=== PATIENT | female | born 1970 | race Native Hawaiian/Other Pacific Islander ===

== ENCOUNTER 2016-06-28 12:05 | Outpatient (CLI) | payer OTHER ==
[2016-06-28 12:50] LABS: PLATELET COUNT 247 K/uL (152-353)
[2016-06-28 13:07] LABS: POTASSIUM 4.7 mmol/L (3.6-5.2); SODIUM 140 mmol/L (136-145)
== END 2016-06-28 19:08 | disposition home or self-care (01) ==
LOC: LAB 12:05
PROVIDERS: Family Medicine
DX: E11.9 Type 2 diabetes mellitus without complications (principal); I10 Essential (primary) hypertension; E78.4 Other hyperlipidemia; E55.9 Vitamin D deficiency, unspecified; G47.33 Obstructive sleep apnea (adult) (pediatric); F32.89 Other specified depressive episodes; K21.9 Gastro-esophageal reflux disease without esophagitis
CPT/HCPCS: 80053; 80061; 81000; 82043; 82306; 82570; 83036; 83735; 84439; 84443; 84550; 85027

== ENCOUNTER 2016-07-20 09:21 | Outpatient (CLI) | payer OTHER | END 2016-07-20 11:00 | disposition home or self-care (01) | LOC: LABW 09:21 | DX: D64.9 Anemia, unspecified (principal) | CPT/HCPCS: 36415; 82607; 82728; 82746; 83540; 83550 ==

== ENCOUNTER 2016-07-30 20:30 | Outpatient (CLI) | payer OTHER ==
[2016-07-30] MEDS ORDERED: LYRICA300 MG OR (20:57)
[2016-07-30] MEDS ORDERED: BUSPIRONE10 MG PO (20:58)
[2016-07-30] MEDS ORDERED: RANITIDINE 150150 MG PO (20:59)
[2016-07-30] MEDS ORDERED: METF100038 OR (21:17)
[2016-07-30] MEDS ORDERED: CARB200T42 PO (21:18)
[2016-07-30] MEDS ORDERED: TRICOR145 M1 PO (21:19)
[2016-07-30] MEDS ORDERED: DIAZEPAM10 M2 PO (21:19)
[2016-07-30] MEDS ORDERED: AMITRIPTYLIN100 MG PO (21:20)
[2016-07-30] MEDS ORDERED: SITA50TA2 PO (21:23)
[2016-07-30] MEDS ORDERED: LISI10TA11 PO (21:24)
[2016-07-30] MEDS ORDERED: TOPIRAMATE25 M1 OR (21:24)
[2016-07-30] MEDS ORDERED: CITALOPRAM40 MG PO (21:25)
[2016-07-30] MEDS ORDERED: CHLORTHALID25 MG OR (21:26)
[2016-07-30] MEDS ORDERED: DULOXETINE HCL30 MG PO (21:27)
[2016-07-30] MEDS ORDERED: AMERGE2.5 MG PO (21:29)
[2016-07-30] MEDS ORDERED: ZOFRAN ODT4 MG OR (21:31)
[2016-07-30] MEDS ORDERED: FLUTICASONE0.005 % EX (21:32)
== END 2016-07-30 20:38 | disposition short-term general hospital (02) ==
LOC: AMB 20:30
DX: R40.20 Unspecified coma (principal)
CPT/HCPCS: A0425; A0427

== ENCOUNTER 2016-07-30 20:40 | Inpatient (IN) | payer OTHER ==
[~2016-07-30] VITALS: Ht 172.7 cm; Wt 95.8 kg
[2016-07-30 20:40] VITALS: BP 128/90; TEMP 98.7
[2016-07-30] MEDS ORDERED: LYRICA300 MG OR (20:57)
[2016-07-30] MEDS ORDERED: BUSPIRONE10 MG PO (20:58)
[2016-07-30] MEDS ORDERED: RANITIDINE 150150 MG PO (20:59)
[2016-07-30 21:12] LABS: PLATELET COUNT 220 K/uL (152-353)
[2016-07-30] MEDS ORDERED: METF100038 OR (21:17)
[2016-07-30] MEDS ORDERED: CARB200T42 PO (21:18)
[2016-07-30] MEDS ORDERED: DIAZEPAM10 M2 PO (21:19)
[2016-07-30] MEDS ORDERED: TRICOR145 M1 PO (21:19)
[2016-07-30 21:20] LABS: POTASSIUM 3.9 mmol/L (3.6-5.2)
[2016-07-30] MEDS ORDERED: AMITRIPTYLIN100 MG PO (21:20)
[2016-07-30] MEDS ORDERED: SITA50TA2 PO (21:23)
[2016-07-30] MEDS ORDERED: TOPIRAMATE25 M1 OR (21:24)
[2016-07-30] MEDS ORDERED: LISI10TA11 PO (21:24)
[2016-07-30] MEDS ORDERED: CITALOPRAM40 MG PO (21:25)
[2016-07-30] MEDS ORDERED: CHLORTHALID25 MG OR (21:26)
[2016-07-30] MEDS ORDERED: DULOXETINE HCL30 MG PO (21:27)
[2016-07-30] MEDS ORDERED: AMERGE2.5 MG PO (21:29)
[2016-07-30] MEDS ORDERED: ZOFRAN ODT4 MG OR (21:31)
[2016-07-30] MEDS ORDERED: FLUTICASONE0.005 % EX (21:32)
[2016-07-30 21:38] LABS: PARTIAL THROMBOPLASTIN TIME 25.2 SECONDS (24.5-33.6)
[2016-07-30 23:00] VITALS: BP 101/74; TEMP 97.6
[2016-07-30 23:15] VITALS: BP 100/66
[2016-07-30 23:30] VITALS: BP 88/63
[2016-07-30 23:45] VITALS: BP 92/62
[2016-07-31] VITALS (40 sets, daily range): BP systolic 94–148; BP diastolic 53–100; TEMP 97.6–100.3; Ht 172.7 cm; Wt 95.8 kg
[2016-07-31 05:24] LABS: PLATELET COUNT 222 K/uL (152-353)
[2016-07-31 05:43] LABS: POTASSIUM 4.2 mmol/L (3.6-5.2); SODIUM 139 mmol/L (136-145)
[2016-08-01] VITALS (23 sets, daily range): BP systolic 96–144; BP diastolic 55–76; TEMP 97–100.5
[2016-08-01 08:08] LABS: PLATELET COUNT 221 K/uL (152-353)
[2016-08-01 08:27] LABS: POTASSIUM 3.6 mmol/L (3.6-5.2); SODIUM 137 mmol/L (136-145)
[2016-08-02] VITALS (8 sets, daily range): BP systolic 87–151; BP diastolic 51–78; TEMP 98–98.6
[2016-08-02 08:45] LABS: PLATELET COUNT 208 K/uL (152-353)
[2016-08-02 08:54] LABS: POTASSIUM 3.8 mmol/L (3.6-5.2); SODIUM 138 mmol/L (136-145)
== END 2016-08-02 17:55 | disposition other institution (70) | DRG 918 ==
LOC: ED 20:40 → ICU 21:15
PROVIDERS: Emergency Medicine
DX: T42.6X2A Poisoning by other antiepileptic and sedative-hypnotic drugs, intentional self-harm, initial encounter (principal); N39.0 Urinary tract infection, site not specified; T51.0X2A Toxic effect of ethanol, intentional self-harm, initial encounter; Y92.89 Other specified places as the place of occurrence of the external cause; B96.1 Klebsiella pneumoniae [K. pneumoniae] as the cause of diseases classified elsewhere; D72.828 Other elevated white blood cell count; F32.89 Other specified depressive episodes; E11.9 Type 2 diabetes mellitus without complications; K27.9 Peptic ulcer, site unspecified, unspecified as acute or chronic, without hemorrhage or perforation; K29.20 Alcoholic gastritis without bleeding; E83.42 Hypomagnesemia
CPT/HCPCS: 36415; 36600; 43754; 51702; 80053; 80307; 80320; 80329; 81000; 82271; 82550; 82553; 82805; 82962; 83735; 83986; 84484; 85027; 85610; 85730; 87077; 87086; 87088; 87186; 94760; 96360; 96361; 99285; G0479; J0132; J0744; J2250; J3475; J3490

== ENCOUNTER 2017-07-02 09:48 | Outpatient (CLI) | payer OTHER ==
[~2017-07-02 09:48] MED LIST: AMERGE2.5 MG PO; AMITRIPTYLIN100 MG PO; BUSPIRONE10 MG PO; CARB200T42 PO; CHLORTHALID25 MG OR; CITALOPRAM40 MG PO; DIAZEPAM10 M2 PO; DULOXETINE HCL30 MG PO; FLUTICASONE0.005 % EX; LISI10TA11 PO; LYRICA300 MG OR; METF100038 OR; RANITIDINE 150150 MG PO; SITA50TA2 PO; TOPIRAMATE25 M1 OR; TRICOR145 M1 PO; ZOFRAN ODT4 MG OR
[2017-07-02 10:01] LABS: PLATELET COUNT 293 K/uL (152-353)
[2017-07-02 10:14] LABS: POTASSIUM 4.2 mmol/L (3.6-5.2)
== END 2017-07-02 20:02 | disposition home or self-care (01) ==
LOC: LABW 09:48
PROVIDERS: Family Medicine
DX: R10.84 Generalized abdominal pain (principal)
CPT/HCPCS: 36415; 80053; 81000; 85027; 87086; 87088

== ENCOUNTER 2017-07-26 19:53 | Emergency (ER) | payer OTHER ==
[~2017-07-26] VITALS: Ht 162.6 cm; Wt 81.6 kg
[2017-07-26 19:58] VITALS: TEMP 96.3
[2017-07-26 20:59] LABS: PLATELET COUNT 259 K/uL (152-353)
[2017-07-26 21:15] LABS: POTASSIUM 4.2 mmol/L (3.6-5.2)
[2017-07-27 00:49] VITALS: BP 117/70
== END 2017-07-27 00:49 | disposition short-term general hospital (02) ==
LOC: ED 19:53
PROVIDERS: Specialist
DX: K56.699 Other intestinal obstruction unspecified as to partial versus complete obstruction (principal)
CPT/HCPCS: 36415; 80053; 82150; 83605; 83690; 83735; 84100; 85027; 96365; 96375; 96376; 99285; J1170; J2405

== ENCOUNTER 2017-07-27 00:42 | Outpatient (CLI) | payer OTHER | END 2017-07-27 01:30 | disposition short-term general hospital (02) | LOC: AMB 00:42 | DX: K56.699 Other intestinal obstruction unspecified as to partial versus complete obstruction (principal) | CPT/HCPCS: A0425; A0427 ==

== ENCOUNTER 2017-08-06 10:13 | Outpatient (CLI) | payer OTHER | END 2017-08-06 19:58 | disposition home or self-care (01) | LOC: RAD 10:13 | DX: R10.84 Generalized abdominal pain (principal) ==

== ENCOUNTER 2018-04-04 09:32 | Outpatient (CLI) | payer OTHER ==
[2018-04-04 10:09] LABS: PLATELET COUNT 275 K/uL (152-353)
== END 2018-04-04 21:35 | disposition home or self-care (01) ==
LOC: RAD 09:32
PROVIDERS: Family Medicine
DX: R05 Cough (principal); D64.9 Anemia, unspecified
CPT/HCPCS: 36415; 82728; 83540; 83550; 85027